=== PATIENT | female | born 1950 | race African-American/Black ===

== ENCOUNTER → 2016-10-08 | Outpatient (CLI) | payer MEDICARE ==
--- NOTE | ~2016-10-08 | MY11 ---
[facility] A Service of [facility] & [facility] RADIOLOGY TEXT RESULTS PATIENT: SHARDA FU LOCATION: [facility] : 50 UNIT #: [id number] AGE: [address]: JUAN M GEE MD SEX: F ORDER DR: [id number] [facility] [address] [place], [place] [address] [id number] O MR#: [id number] Acc #: [id number] NAME: SHARDA FU : 1950 SEX: F STUDY DATE/TIME: 10/08/2016 10:56 UNIT: [facility] ROOM: STUDY DESCRIPTION: MY Mammogram Screening Dig Mike Attending Physician: Juan M Gee M.D. Referring Physician: Juan M Gee M.D. Ordering Physician: Juan M Gee M.D. Primary Care Physician: Juan M Gee M.D. MEDICAL IMAGING REPORT This report is preliminary unless electronic signature is present EXAM Digital screening mammogram, 10/08/2016, [facility]. HISTORY 65-year-old woman new baseline mammogram. No risk elevation. Multiple moles bilateral breast with markers placed. COMPARISON None. Previous mammograms 10+ years ago. TECHNIQUE Digital imaging of each breast was completed utilizing screening protocol. Multiple mole markers are placed bilaterally. Review includes FDA-approved CAD device. FINDINGS Small, well-circumscribed, benign nodule projects left subareolar location inferomedial to the nipple. Intramammary lymph node projects outer right breast location. There is no suspicious mass in either breast. There are no microcalcifications and no architectural distortion. IMPRESSION Negative mammogram. Annual screening recommended. Patients over the age of 40 are entered into a reminder system with target due date for the next mammogram. A result letter will also be sent to the patient. BIRADS: 1 Negative Dictated by... [facility] A Service of [facility] & [facility] RADIOLOGY TEXT RESULTS PATIENT: SHARDA FU LOCATION: [facility] : 50 UNIT #: [id number] AGE: [address]: JUAN M GEE MD SEX: F ORDER DR: Jose Singh M.D. THIS IS AN ELECTRONICALLY VERIFIED REPORT Jose Singh M.D. at 10/08/2016 1:35 PM KESHIA/barry TD: 10/08/2016 12:58 JOB #: [id number] MEDICAL IMAGING REPORT Page 1 of 1 COPY
== END | disposition home or self-care (01) ==
LOC: CWCC 10:41
DX: Z12.31 Encounter for screening mammogram for malignant neoplasm of breast (principal); D22.5 Melanocytic nevi of trunk
CPT/HCPCS: G0202